=== PATIENT | female | born 1960 | race Caucasian/White ===

== ENCOUNTER → 2019-01-16 | Outpatient (CLI) | payer MEDICAID ==
[2019-01-16 12:51] LABS: HEMATOCRIT 42.3 % (37.0-47.0); HEMOGLOBIN 13.8 gm/dL (12.0-15.0); MCH 29.7 pg (26.0-34.0); MCHC 32.6 g/dL (28.0-37.0); MCV 91.1 fL (80.0-100.0); RBC 4.64 mil/uL (4.20-5.00); RDW-CV 14.1 % (10.5-14.5); WBC 7.4 thou/uL (4.0-11.0)
[2019-01-16 12:56] LABS: URINE BILIRUBIN NEGATIVE (Negative); URINE BLOOD NEGATIVE (Negative); URINE CLARITY CLEAR; URINE COLOR YELLOW; URINE GLUCOSE-RANDOM NEGATIVE (Negative); URINE KETONES NEGATIVE (Negative); URINE LEUKOCYTES 2+ (Negative); URINE NITRITE NEGATIVE (Negative); URINE PROTEIN TRACE (Negative); URINE SPECIFIC GRAVITY 1.025 (1.005-1.030); URINE UROBILINOGEN 0.2 E.U./dl (0.2-1.0)
[2019-01-16 13:07] LABS: ALKALINE PHOSPHATASE 72 U/L (46-116); ANION GAP 10 mmol/L (7-16); BUN 12 mg/dL (7-18); CALCIUM 8.1 mg/dL (8.5-10.1); CHLORIDE 104 mmol/L (98-107); CHOLESTEROL 115 mg/dL (<200); CO2 26 mmol/L (21-32); CREATININE 0.8 mg/dL (0.6-1.3); GLUCOSE 167 mg/dL (70-99); HDL CHOLESTEROL 38 mg/dL (>40); LDL CHOLESTEROL 46 mg/dL (<100); POTASSIUM 3.6 mmol/L (3.5-5.1); SGOT 14 U/L (15-37); SGPT 16 U/L (30-65); SODIUM 140 mmol/L (136-145); TOTAL BILIRUBIN 0.6 mg/dL (<0.1-1.0); TOTAL PROTEIN 6.9 g/dL (6.4-8.2); TRIGLYCERIDE 156 mg/dL (<150); VLDL 31 mg/dL (<40)
[2019-01-16 13:09] LABS: SQUAMOUS >10 Many /LPF (0-3); URINE RBC None Seen /HPF (0-2); URINE WBC 6-15 Few /HPF (0-5)
[2019-01-16 13:10] LABS: BACTERIA 1-9 Few /HPF (None Seen)
[2019-01-16 13:11] LABS: CASTS None Seen /LPF (None Seen); CRYSTALS None Seen /LPF (None Seen); MUCUS >6 Heavy strn/LPF (None Seen)
[2019-01-16 13:13] LABS: SERUM ASSESSMENT Clear
[2019-01-17 09:07] LABS: GLYCOHEMOGLOBIN (HGB A1C) 8.1 % (4.8-5.6)
== END ==
LOC: M.LAB 12:26
DX: I10 Essential (primary) hypertension (principal)

== ENCOUNTER 2019-05-24 15:41 | Emergency (ER) | payer MEDICAID ==
[~2019-05-24] VITALS: Ht 167.6 cm; Wt 125.7 kg
[2019-05-24 16:32] LABS: ABSOLUTE BASOPHILS 0.1 thou/uL (0.0-0.2); ABSOLUTE EOSINOPHILS 0.3 thou/uL (0.0-0.7); ABSOLUTE LYMPHOCYTES 2.4 thou/uL (0.8-5.3); ABSOLUTE MONOCYTES 0.7 thou/uL (0.0-1.2); ABSOLUTE NEUTROPHILS 7.2 thou/uL (1.6-8.1); BASOPHILS 0.8 %; EOSINOPHILS 2.5 %; HEMOGLOBIN 14.8 gm/dL (12.0-15.0); LYMPHOCYTES 22.9 %; MCH 30.9 pg (26.0-34.0); MCV 93.9 fL (80.0-100.0); MONOCYTES 6.3 %; MPV 8.2 fl. (7.2-11.1); NUCLEATED RBCS 0 /100WBC; PLATELET COUNT* 349 thou/uL (150-400); POLYS 67.5 %; RBC 4.79 mil/uL (4.20-5.00); RDW-CV 14.5 % (10.5-14.5); WBC 10.7 thou/uL (4.0-11.0)
[2019-05-24 16:45] LABS: CALCIUM 9.3 mg/dL (8.5-10.1); CREATININE 0.9 mg/dL (0.6-1.3); POTASSIUM 3.8 mmol/L (3.5-5.1)
[2019-05-24 16:50] LABS: ALBUMIN 3.6 g/dL (3.4-5.0); TOTAL BILIRUBIN 0.5 mg/dL (<0.1-1.0); TOTAL PROTEIN 7.6 g/dL (6.4-8.2)
[2019-05-24 17:49] LABS: URINE BILIRUBIN NEGATIVE (Negative); URINE BLOOD NEGATIVE (Negative); URINE CLARITY CLEAR; URINE COLOR YELLOW; URINE GLUCOSE-RANDOM NEGATIVE (Negative); URINE KETONES NEGATIVE (Negative); URINE NITRITE-REFLEX NEGATIVE (Negative); URINE PROTEIN NEGATIVE (Negative); URINE UROBILINOGEN 0.2 E.U./dl (0.2-1.0)
[2019-05-24 17:52] LABS: URINE LEUKOCYTES-REFLEX 2+ (Negative)
[2019-05-24 18:07] LABS: SQUAMOUS >10 Many /LPF (0-3)
[2019-05-24 18:08] LABS: BACTERIA-REFLEX 1-9 Few /HPF (None Seen); CASTS None Seen /LPF (None Seen); CRYSTALS None Seen /LPF (None Seen); MUCUS 0-3 Light strn/LPF (None Seen); URINE RBC None Seen /HPF (0-2); URINE WBC-REFLEX 0-5 Rare /HPF (0-5)
[2019-05-24] MEDS ORDERED: CIPROFLOXACIN500 M1 PO (18:29)
[2019-05-24] MEDS ORDERED: TYLENOL WITH CO1 TA1 PO (18:29)
[2019-05-24] MEDS ORDERED: IBUPROFEN 800800 MG PO (18:29)
[2019-05-24 18:38] VITALS: BP 113/74
== END 2019-05-24 18:38 | disposition home or self-care (01) ==
LOC: M.ERS 15:41
PROVIDERS: Personal Emergency Response Attendant
DX: N39.0 Urinary tract infection, site not specified (principal); I10 Essential (primary) hypertension; M19.90 Unspecified osteoarthritis, unspecified site; E11.9 Type 2 diabetes mellitus without complications

== ENCOUNTER → 2019-07-01 | Outpatient (CLI) | payer MEDICAID ==
[~2019-07-01] MED LIST: CIPROFLOXACIN500 M1 PO; IBUPROFEN 800800 MG PO; TYLENOL WITH CO1 TA1 PO
== END ==
LOC: M.RAD 12:54
DX: N63.20 Unspecified lump in the left breast, unspecified quadrant (principal); R92.8 Other abnormal and inconclusive findings on diagnostic imaging of breast

== ENCOUNTER → 2019-07-19 | Outpatient (CLI) | payer MEDICAID ==
[2019-07-20 02:10] LABS: GLYCOHEMOGLOBIN (HGB A1C) 7.5 % (4.8-5.6)
== END ==
LOC: M.LAB 15:29
PROVIDERS: Emergency Medicine
DX: E11.9 Type 2 diabetes mellitus without complications (principal)